=== PATIENT | female | born 1990 | race Caucasian/White ===

== ENCOUNTER 2018-03-22 00:33 | Emergency (ER) | payer OTHER ==
[~2018-03-22] VITALS: Ht 172.7 cm; Wt 67.7 kg
[~2018-03-22 00:33] MED LIST: ATARAX,VISTARIL50 MG PO; RANITIDINE HCL150 MG PO
[2018-03-22] MEDS ORDERED: VIBRAMYCIN100 MG PO (01:26)
[2018-03-22 02:09] VITALS: BP 117/80
[2018-03-22 10:08] LABS: LYME DISEASE SEROLOGY SCREEN NEGATIVE (NEGATIVE)
== END 2018-03-22 02:10 | disposition home or self-care (01) ==
LOC: EME 00:33
PROVIDERS: Physician Assistant
DX: S80.862A Insect bite (nonvenomous), left lower leg, initial encounter (principal); W57.XXXA Bitten or stung by nonvenomous insect and other nonvenomous arthropods, initial encounter; Y93.01 Activity, walking, marching and hiking; Y92.828 Other wilderness area as the place of occurrence of the external cause; Z88.5 Allergy status to narcotic agent; Z88.6 Allergy status to analgesic agent
CPT/HCPCS: 86618; 99281; 99283